=== PATIENT | male | born 1970 | race Two or more races ===

== ENCOUNTER → 2018-06-29 | Outpatient (CLI) | payer OTHER ==
[2018-06-26 15:00] VITALS: BP 112/80
[~2018-06-29] MED LIST: AMLO5TAB7 PO; AMOX1TAB61 PO; DICL75TA PO; EMPA10TA PO; METF500T16 PO; PIOG15TA63 PO; SULF-143 PO; [UNRECOGNIZED DRUG - CODE] PO
== END | disposition home or self-care (01) ==
LOC: PMGWOUND 09:04
PROVIDERS: ATTEND Emergency Medicine Undersea and Hyperbaric Medicine
DX: E11.621 Type 2 diabetes mellitus with foot ulcer (principal); L97.523 Non-pressure chronic ulcer of other part of left foot with necrosis of muscle; I10 Essential (primary) hypertension; L84 Corns and callosities
CPT/HCPCS: 97605

== ENCOUNTER → 2018-07-11 | Outpatient (CLI) | payer OTHER ==
[2018-06-26 15:00] VITALS: BP 112/80
== END | disposition home or self-care (01) ==
LOC: PMGWOUND 09:00
PROVIDERS: ATTEND Emergency Medicine Undersea and Hyperbaric Medicine
DX: E11.621 Type 2 diabetes mellitus with foot ulcer (principal); L97.523 Non-pressure chronic ulcer of other part of left foot with necrosis of muscle; L84 Corns and callosities; I10 Essential (primary) hypertension
CPT/HCPCS: 99213

== ENCOUNTER → 2018-07-18 | Outpatient (CLI) | payer OTHER ==
[2018-06-26 15:00] VITALS: BP 112/80
== END | disposition home or self-care (01) ==
LOC: PMGWOUND 09:01
PROVIDERS: ATTEND Emergency Medicine Undersea and Hyperbaric Medicine
DX: E11.621 Type 2 diabetes mellitus with foot ulcer (principal); L97.528 Non-pressure chronic ulcer of other part of left foot with other specified severity; I10 Essential (primary) hypertension; L84 Corns and callosities
CPT/HCPCS: 99213